=== PATIENT | female | born 1985 | race African-American/Black ===

== ENCOUNTER 2017-05-15 17:28 | Inpatient (IN) | payer MEDICAID ==
[~2017-05-15] VITALS: Ht 175.3 cm; Wt 116.1 kg
[2017-05-15 18:08] LABS: APPEARANCE,URINE CLEAR; KETONES,URINE 1+ (NEGATIVE); LEUKOCYTE ESTERASE ,URINE 1+ (NEGATIVE); NITRITE,URINE NEGATIVE (NEGATIVE); PH,URINE 6 (4.5-8.0); PROTEIN,URINE NEGATIVE (NEGATIVE); UROBILINOGEN,URINE NORMAL MG/DL (0.0-1.0)
[2017-05-15 18:27] LABS: BASOPHILS % (AUTO) 1.2 % (0.0-2.0); EOSINOPHILS % (AUTO) 1.1 % (0.0-3.0); LYMPHOCYTES % (AUTO) 31.8 % (20.0-45.0); MEAN CORPUSCULAR HEMOGLOBIN 33.9 PG (27.0-31.0); MEAN CORPUSCULAR HGB CONC 35.4 G/DL (32.0-36.0); MEAN CORPUSCULAR VOLUME 96 FL (80-99); MEAN PLATELET VOLUME 6.1 FL (6.5-10.1); MONOCYTES % (AUTO) 9.6 % (1.0-10.0); NEUTROPHILS % (AUTO) 56.2 % (45.0-75.0); PLATELET COUNT 268 K/UL (150-450); RED BLOOD COUNT 3.82 M/UL (4.20-5.40); RED CELL DISTRIBUTION WIDTH 12.8 % (11.6-14.8); WHITE BLOOD COUNT 8.6 K/UL (4.8-10.8)
[2017-05-15 18:34] LABS: BACTERIA,URINE FEW /HPF; SQUAMOUS EPITHELIAL CELL,UR FEW /LPF (NONE/OCC); WBC,URINE 0-2 /HPF (0 - 2)
[2017-05-15 18:35] LABS: ALANINE AMINOTRANSFERASE 14 U/L (3-33); ALBUMIN/GLOBULIN RATIO 1.3 (1.0-2.7); ANION GAP 13 (5-15); ASPARTATE AMINO TRANSFERASE 21 U/L (5-40); CALCIUM 9.7 mg/dL (8.6-10.2); CARBON DIOXIDE 23 mEQ/L (20-30); CHLORIDE 100 mEQ/L (98-107); CREATININE 0.9 mg/dL (0.5-0.9); GLOMERULAR FILTRATION RATE > 60 mL/min (>60); HEMOLYSIS 90; LIPASE 30 U/L (< 60); POTASSIUM 3.9 mEQ/L (3.4-4.9); SODIUM 136 mEQ/L (135-145); TOTAL PROTEIN 8.3 g/dL (6.6-8.7)
[2017-05-15 19:21] VITALS: BP 130/78
[2017-05-15 20:22] VITALS: BP 140/90
[2017-05-15] MEDS ORDERED: TRAMADOL HCL50 MG ORAL (21:21)
[2017-05-15] MEDS ORDERED: IBUPROFEN600 MG ORAL (21:21)
[2017-05-15 21:25] LABS: BASOPHILS % (AUTO) 1.3 % (0.0-2.0); EOSINOPHILS % (AUTO) 1.6 % (0.0-3.0); LYMPHOCYTES % (AUTO) 35.4 % (20.0-45.0); MEAN CORPUSCULAR HEMOGLOBIN 33.5 PG (27.0-31.0); MEAN CORPUSCULAR HGB CONC 34.7 G/DL (32.0-36.0); MEAN CORPUSCULAR VOLUME 97 FL (80-99); MEAN PLATELET VOLUME 6.5 FL (6.5-10.1); MONOCYTES % (AUTO) 9.5 % (1.0-10.0); NEUTROPHILS % (AUTO) 52.2 % (45.0-75.0); PLATELET COUNT 255 K/UL (150-450); RED BLOOD COUNT 3.68 M/UL (4.20-5.40); RED CELL DISTRIBUTION WIDTH 12.8 % (11.6-14.8); WHITE BLOOD COUNT 7.4 K/UL (4.8-10.8)
[2017-05-15] MEDS ORDERED: Norco 5mg/325mg tab ORAL ONE (21:30)
--- NOTE | 2017-05-15 21:57 | Emergency Room Report ---
History of Present Illness General Chief Complaint: Complications Source: Patient Present Illness HPI The patient is a 32-year-old female at 5 weeks gestation by dates presenting for midabdominal pain which began 3 days prior. Pain is described as a 5/10 cramping sensation to the lower abdomen. She has not seen her OB or had US. She denies any vaginal bleeding. She denies other symptoms including N , V, F, chills, back pain, dysuria, hematuria Allergies: Coded Allergies: ADHESIVE TAPE (Verified Allergy, Mild, Itching, 05/16/17) BANANA (Verified Allergy, Mild, Itching, 05/16/17) Patient History Past Medical History: see triage record Pertinent Family History: none Last Menstrual Period: 5 weeks Now: Yes Reviewed Nursing Documentation: PMH: Agreed, PSxH: Agreed Nursing Documentation-PMH Past Medical History: No Stated History Review of Systems All Other Systems: negative except mentioned in HPI Physical Exam Vital Signs Date Time Temp Pulse Resp B/P Pulse Ox O2 Delivery O2 Flow Rate FiO2 05/15/17 17:36 97.9 82 18 133/88 100 Room Air Sp02 EP Interpretation: reviewed, normal General Appearance: no apparent distress, alert, GCS 15, non-toxic Head: normocephalic, atraumatic Eyes: bilateral eye PERRL, bilateral eye normal inspection ENT: hearing grossly normal, normal pharynx, no angioedema, normal voice Neck: full range of motion, supple/symm/no masses Respiratory: chest non-tender, lungs clear, normal breath sounds, speaking full sentences Cardiovascular #1: regular rate, rhythm, no edema Gastrointestinal: normal bowel sounds, soft, no mass, no guarding, tenderness - suprapubic Genitourinary: normal inspection, no CVA tenderness Musculoskeletal: back normal, gait/station normal, normal range of motion, non- tender Neurologic: alert, oriented x3, responsive, motor strength/tone normal, sensory intact, speech normal Psychiatric: judgement/insight normal, memory normal, mood/affect normal, no suicidal/homicidal ideation Skin: normal color, no rash, warm/dry, well hydrated Medical Decision Making PA Attestation Dr. Gordon is my supervising physician. Patient management was discussed with my supervising physician Diagnostic Impression: Primary Impression: Uterine mass Additional Impression: Qualified Codes: Z3A.01 - Less than 8 weeks gestation of ER Course The patient is a 32-year-old female presenting for abdominal pain Differential diagnoses considered include but not limited to Early , threatened , ectopic , hemorrhagic cyst, UTI, among others PE: vitals WNL. NAD Abd is soft. TTP over suprapubic region only Labs: Initial CBC is unremarkable. No leukocytosis. H/H WNL. CMP unremarkable. Beta hCG 710. Not consistent with of 5 weeks. Urinalysis shows 1+ occult blood with few red blood cells. No signs of infection Serial CBC drawn 3 hours later shows decrease of H/H Abd US: Early gestational sac versus pseudo-sac versus polyp versus adenomyosis. There is moderate free fluid cyst leak versus leaking ectopic. Heterogeneous mass with vascularity and pelvic cul-de-sac possible ectopic Case was discussed with Dr. Lai Lion by Dr. Gordon. She will be admitted in stable condition. Pt is NPO. Laboratory Tests Test 05/15/17 17:33 05/15/17 18:00 05/15/17 21:15 Urine Color Yellow Urine Appearance Clear Urine pH 6 (4.5-8.0) Urine Specific [place] 1.020 (1.005-1.035) Urine Protein Negative (NEGATIVE) Urine Glucose (UA) Negative (NEGATIVE) Urine Ketones 1+ (NEGATIVE) H Urine Occult Blood 1+ (NEGATIVE) H Urine Nitrite Negative (NEGATIVE) Urine Bilirubin Negative (NEGATIVE) Urine Urobilinogen Normal MG/DL (0.0-1.0) Urine Leukocyte Esterase 1+ (NEGATIVE) H Urine RBC 2-4 /HPF (0 - 2) H Urine WBC 0-2 /HPF (0 - 2) Urine Squamous Epithelial Cells Few /LPF (NONE/OCC) Urine Bacteria Few /HPF (NONE) Urine HCG, Qualitative Positive White Blood Count 8.6 K/UL (4.8-10.8) 7.4 K/UL (4.8-10.8) Red Blood Count 3.82 M/UL (4.20-5.40) L 3.68 M/UL (4.20-5.40) L Hemoglobin 13.0 G/DL (12.0-16.0) 12.3 G/DL (12.0-16.0) Hematocrit 36.7 % (37.0-47.0) L 35.5 % (37.0-47.0) L Mean Corpuscular Volume 96 FL (80-99) 97 FL (80-99) Mean Corpuscular Hemoglobin 33.9 PG (27.0-31.0) H 33.5 PG (27.0-31.0) H Mean Corpuscular Hemoglobin Concent 35.4 G/DL (32.0-36.0) 34.7 G/DL (32.0-36.0) Red Cell Distribution Width 12.8 % (11.6-14.8) 12.8 % (11.6-14.8) Platelet Count 268 K/UL (150-450) 255 K/UL (150-450) Mean Platelet Volume 6.1 FL (6.5-10.1) L 6.5 FL (6.5-10.1) Neutrophils (%) (Auto) 56.2 % (45.0-75.0) 52.2 % (45.0-75.0) Lymphocytes (%) (Auto) 31.8 % (20.0-45.0) 35.4 % (20.0-45.0) Monocytes (%) (Auto) 9.6 % (1.0-10.0) 9.5 % (1.0-10.0) Eosinophils (%) (Auto) 1.1 % (0.0-3.0) 1.6 % (0.0-3.0) Basophils (%) (Auto) 1.2 % (0.0-2.0) 1.3 % (0.0-2.0) Sodium Level 136 mEQ/L (135-145) Potassium Level 3.9 mEQ/L (3.4-4.9) Chloride Level 100 mEQ/L (98-107) Carbon Dioxide Level 23 mEQ/L (20-30) Anion Gap 13 (5-15) Blood Urea Nitrogen 12 mg/dL (7-23) Creatinine 0.9 mg/dL (0.5-0.9) Estimate Glomerular Filtration Rate > 60 mL/min (>60) Glucose Level 69 mg/dL (74-106) L Calcium Level 9.7 mg/dL (8.6-10.2) Total Bilirubin 0.2 mg/dL (0.0-1.2) Aspartate Amino Transferase (AST) 21 U/L (5-40) Alanine Aminotransferase (ALT) 14 U/L (3-33) Alkaline Phosphatase 59 U/L (35-104) Total Protein 8.3 g/dL (6.6-8.7) Albumin 4.7 g/dL (3.5-5.2) Globulin 3.6 g/dL Albumin/Globulin Ratio 1.3 (1.0-2.7) Lipase 30 U/L (< 60) Human Chorionic Gonadotropin, Quant 712 mIU/mL Lab Results Impression Initial CBC is unremarkable. No leukocytosis. H/H WNL. CMP unremarkable. Beta hCG 710. Not consistent with of 5 weeks. Urinalysis shows 1+ occult blood with few red blood cells. No signs of infection Serial CBC drawn 3 hours later shows decrease of H/H EKG Diagnostic Results EP Interpretation: NSR. No acute changes Rate: normal - 69 Rhythm: NSR ST Segments: no acute changes ASA given to the pt in ED: No PA Scribe Text EKG was reviewed and read with my supervising physician. No acute ST segment changes are seen. Normal rate and rhythm. No acute changes. CT/MRI/US Diagnostic Results CT/MRI/US Diagnostic Results : Imaging Test Ordered: OB US Impression Early gestational sac versus pseudo-sac versus polyp versus adenomyosis. There is moderate free fluid cyst leak versus leaking ectopic. Heterogeneous mass with vascularity and pelvic cul-de-sac possible ectopic Last Vital Signs Date Time Temp Pulse Resp B/P Pulse Ox O2 Delivery O2 Flow Rate FiO2 05/15/17 19:21 99.0 78 15 130/78 100 Room Air Status: improved Disposition: ADMITTED INPATIENT Condition: Stable OLY JEREZ May 15, 2017 21:57
[2017-05-15 22:00] VITALS: BP 120/80
[2017-05-15] MEDS ORDERED: Metoclopramide 10mg/2ml Inj IVP PRN (22:30)
[2017-05-15] MEDS ORDERED: LORazepam Inj 2mg/ml 1ml IV PRN (22:30)
[2017-05-15] MEDS ORDERED: Mylanta II UD 30ml ORAL PRN (22:30)
[2017-05-15] MEDS ORDERED: Nitroglycerin Subl 0.4mg tab (Bottle Of 25) SL PRN (22:30)
[2017-05-15] MEDS ORDERED: Miralax 17gm pkt ORAL PRN (22:30)
[2017-05-15] MEDS ORDERED: Morphine Sulfate 2mg/ml Inj IVP PRN (22:30)
[2017-05-15 22:33] LABS: INR 0.9 (0.9-1.1); PROTHROMBIN TIME 9.4 SEC (9.30-11.50)
[2017-05-16] VITALS: BP 120/74
[2017-05-16] MEDS: D5 1/2NS 1,000 ML IV SCH ×2 (00:34→13:46)
[2017-05-16 04:00] VITALS: BP 111/52
[2017-05-16 07:56] LABS: BASOPHILS % (AUTO) 0.9 % (0.0-2.0); LYMPHOCYTES % (AUTO) 34.2 % (20.0-45.0); MEAN CORPUSCULAR HEMOGLOBIN 32.9 PG (27.0-31.0); MEAN CORPUSCULAR HGB CONC 33.5 G/DL (32.0-36.0); MEAN CORPUSCULAR VOLUME 98 FL (80-99); MEAN PLATELET VOLUME 6.3 FL (6.5-10.1); MONOCYTES % (AUTO) 12.2 % (1.0-10.0); NEUTROPHILS % (AUTO) 50.7 % (45.0-75.0); PLATELET COUNT 263 K/UL (150-450); RED BLOOD COUNT 3.69 M/UL (4.20-5.40); RED CELL DISTRIBUTION WIDTH 12.4 % (11.6-14.8); WHITE BLOOD COUNT 5.9 K/UL (4.8-10.8)
[2017-05-16 08:00] VITALS: BP 123/62
[2017-05-16 08:54] LABS: ALANINE AMINOTRANSFERASE 12 U/L (3-33); ALBUMIN/GLOBULIN RATIO 1.2 (1.0-2.7); AMYLASE 60 U/L (10-110); ANION GAP 13 (5-15); ASPARTATE AMINO TRANSFERASE 16 U/L (5-40); CALCIUM 8.6 mg/dL (8.6-10.2); CARBON DIOXIDE 21 mEQ/L (20-30); CHLORIDE 104 mEQ/L (98-107); CREATININE 0.7 mg/dL (0.5-0.9); GLOMERULAR FILTRATION RATE > 60 mL/min (>60); HEMOLYSIS 7; LIPASE 23 U/L (< 60); POTASSIUM 3.2 mEQ/L (3.4-4.9); SODIUM 138 mEQ/L (135-145); TOTAL PROTEIN 6.8 g/dL (6.6-8.7)
[2017-05-16] MEDS ORDERED: Heparin 5000 units/ml inj SUBQ SCH (09:00)
[2017-05-16] MEDS ORDERED: D5 1/2NS 1000ml IV ONE (09:15)
--- NOTE | 2017-05-16 09:32 | Diagnostic Imaging Report ---
Indication: 32-year-old female with beta hCG of 712 presenting with pelvic pain. Technique: Transabdominal and endovaginal pelvic ultrasound. Comparison: None Findings: Uterus measures 8.8 x 5.9 x 4.6 cm. The endometrial echo complex measures 11 mm. There is a 3 mm cystic structure within the endometrial echo complex. No yolk sac or pole identified at this time. There is a complex posterior pelvic mass measuring 9.5 cm abutting the posterior aspect of the uterus. Internal vascularity is noted within this mass. The right ovary measures approximately 3.2 x 4.0 cm with 2 cysts measuring up to 2.3 cm. There is moderate free fluid in the pelvis. Left ovary is not identified. Impression: Technically limited examination. Endometrial echo complex measures 11 mm with a 3 mm cystic structure but no visualization of a yolk sac, pole or heart tones. Although this could represent an early gestational sac too small to date sonographically, possibility of a pseudo-gestational sac cannot be completely excluded. Without definitive identification of an intrauterine , possibility of ectopic cannot be excluded. Correlation with serial beta hCG recommended. Gynecologic evaluation recommended. Large heterogeneous solid-appearing mass within the posterior pelvic cul-de-sac abutting the uterus measuring 9.5 x 5.3 cm. Differential considerations would include an exophytic fibroid versus solid adnexal mass. Again the possibility of ectopic cannot be completely excluded. Laboratory/clinical correlation recommended. Gynecologic evaluation recommended. Moderate free fluid in the pelvis, nonspecific. Right ovarian cysts. Left ovary nonvisualized. Findings are concordant with the preliminary radiology report.
--- NOTE | 2017-05-16 10:59 | History and Physical ---
History of Present Illness General Date patient seen: May 16, 2017 Time patient seen: 10:00 Reason for Hospitalization: Complications Present Illness HPI 32-year-old female w/out significant past medical history at 5 weeks gestation by dates presented for midabdominal pain x 3 days. Pain was described as cramping, intermittent, located in lower abdomen, 5/10 on a scale 1 to 10. She had not seen O/HOTEL SUPERINTENDENT and did not have US. She denied any vaginal bleeding. She denied n/v/, no fevers, no chills, no back pain, no dysuria, no hematuria , no diarrhea Workup in ED revealed no leukocytosis, no fever, stable VS lytes stable, but this am K-3.2 [id number]-[id number] UA no evidence of UTI pelvic/TV US revealed : 11 mm with a 3 mm cystic structure but no visualization of a yolk sac, pole or heart tones. Although this could represent an early gestational sac too small to date sonographically, possibility of a pseudo-gestational sac cannot be completely excluded. Without definitive identification of an intrauterine , possibility of ectopic cannot be excluded. Large heterogeneous solid-appearing mass within the posterior pelvic cul-de-sac abutting the uterus measuring 9.5 x 5.3 cm. Differential considerations would include an exophytic fibroid versus solid adnexal mass. Again the possibility of ectopic cannot be completely excluded. Moderate free fluid in the pelvis, nonspecific. CONSULTING SALES MANAGER dr Lion was contacted from ED patient reported that she WAs in relationship with another female, but trying to get and was inseminated at home at the end of March patient was admitted for further management Allergies: Coded Allergies: ADHESIVE TAPE (Verified Allergy, Mild, Itching, 05/16/17) BANANA (Verified Allergy, Mild, Itching, 05/16/17) Medication History No Active Prescriptions or Reported Meds Patient History Healthcare decision maker Resuscitation status Full Code Advanced Directive on File Review of Systems Constitutional: Reports: no symptoms Eye: Reports: no symptoms ENT: Reports: no symptoms Respiratory: Reports: no symptoms Cardiovascular: Reports: no symptoms Gastrointestinal: Reports: no symptoms Genitourinary: Reports: see HPI Musculoskeletal: Reports: no symptoms Psychiatric: Reports: no symptoms Neurological: Reports: no symptoms Endocrine: Reports: no symptoms Hematologic/Lymphatic: Reports: no symptoms Physical Exam General Appearance: WD/WN, no apparent distress, alert Lines, tubes and drains: peripheral HEENT: normocephalic, atraumatic, anicteric, PERRL Neck: non-tender, supple Respiratory/Chest: lungs clear, no respiratory distress, no accessory muscle use Cardiovascular/Chest: normal rate, regularly irregular, no JVD Abdomen: normal bowel sounds, non tender, soft Extremities: normal range of motion, non-tender, normal inspection, no calf tenderness, normal capillary refill Skin Exam: normal pigmentation, warm/dry Neurologic: no motor/sensory deficits, alert, oriented x 3, responsive, normal mood/affect Musculoskeletal: normal muscle bulk Last 24 Hour Vital Signs Date Time Temp Pulse Resp B/P Pulse Ox O2 Delivery O2 Flow Rate FiO2 05/16/17 08:00 97.7 72 19 123/62 100 Room Air 05/16/17 04:00 97.5 86 20 111/52 100 Room Air 05/16/17 00:25 93 18 128/78 98 Room Air 05/16/17 00:00 97.5 84 18 120/74 99 Room Air 05/15/17 22:00 97.8 82 16 120/80 98 Room Air 05/15/17 20:22 98.0 92 16 140/90 98 Room Air 05/15/17 19:21 99.0 78 15 130/78 100 Room Air 05/15/17 17:36 97.9 82 18 133/88 100 Room Air Intake and Output 05/15/17 05/16/17 19:00 07:00 Intake Total 450 ml Balance 450 ml Intake IV Total 450 ml # Voids 1 2 Laboratory Tests Test 05/15/17 17:33 05/15/17 18:00 05/15/17 21:15 05/16/17 06:50 Urine Color Yellow Urine Appearance Clear Urine pH 6 (4.5-8.0) Urine Specific [place] 1.020 (1.005-1.035) Urine Protein Negative (NEGATIVE) Urine Glucose (UA) Negative (NEGATIVE) Urine Ketones 1+ (NEGATIVE) H Urine Occult Blood 1+ (NEGATIVE) H Urine Nitrite Negative (NEGATIVE) Urine Bilirubin Negative (NEGATIVE) Urine Urobilinogen Normal MG/DL (0.0-1.0) Urine Leukocyte Esterase 1+ (NEGATIVE) H Urine RBC 2-4 /HPF (0 - 2) H Urine WBC 0-2 /HPF (0 - 2) Urine Squamous Epithelial Cells Few /LPF (NONE/OCC) Urine Bacteria Few /HPF (NONE) Urine HCG, Qualitative Positive White Blood Count 8.6 K/UL (4.8-10.8) 7.4 K/UL (4.8-10.8) 5.9 K/UL (4.8-10.8) Red Blood Count 3.82 M/UL (4.20-5.40) L 3.68 M/UL (4.20-5.40) L 3.69 M/UL (4.20-5.40) L Hemoglobin 13.0 G/DL (12.0-16.0) 12.3 G/DL (12.0-16.0) 12.2 G/DL (12.0-16.0) Hematocrit 36.7 % (37.0-47.0) L 35.5 % (37.0-47.0) L 36.2 % (37.0-47.0) L Mean Corpuscular Volume 96 FL (80-99) 97 FL (80-99) 98 FL (80-99) Mean Corpuscular Hemoglobin 33.9 PG (27.0-31.0) H 33.5 PG (27.0-31.0) H 32.9 PG (27.0-31.0) H Mean Corpuscular Hemoglobin Concent 35.4 G/DL (32.0-36.0) 34.7 G/DL (32.0-36.0) 33.5 G/DL (32.0-36.0) Red Cell Distribution Width 12.8 % (11.6-14.8) 12.8 % (11.6-14.8) 12.4 % (11.6-14.8) Platelet Count 268 K/UL (150-450) 255 K/UL (150-450) 263 K/UL (150-450) Mean Platelet Volume 6.1 FL (6.5-10.1) L 6.5 FL (6.5-10.1) 6.3 FL (6.5-10.1) L Neutrophils (%) (Auto) 56.2 % (45.0-75.0) 52.2 % (45.0-75.0) 50.7 % (45.0-75.0) Lymphocytes (%) (Auto) 31.8 % (20.0-45.0) 35.4 % (20.0-45.0) 34.2 % (20.0-45.0) Monocytes (%) (Auto) 9.6 % (1.0-10.0) 9.5 % (1.0-10.0) 12.2 % (1.0-10.0) H Eosinophils (%) (Auto) 1.1 % (0.0-3.0) 1.6 % (0.0-3.0) 2.0 % (0.0-3.0) Basophils (%) (Auto) 1.2 % (0.0-2.0) 1.3 % (0.0-2.0) 0.9 % (0.0-2.0) Prothrombin Time 9.4 SEC (9.30-11.50) Prothromb Time International Ratio 0.9 (0.9-1.1) Activated Partial Thromboplast Time 30 SEC (23-33) 29 SEC (23-33) Sodium Level 136 mEQ/L (135-145) 138 mEQ/L (135-145) Potassium Level 3.9 mEQ/L (3.4-4.9) 3.2 mEQ/L (3.4-4.9) L Chloride Level 100 mEQ/L (98-107) 104 mEQ/L (98-107) Carbon Dioxide Level 23 mEQ/L (20-30) 21 mEQ/L (20-30) Anion Gap 13 (5-15) 13 (5-15) Blood Urea Nitrogen 12 mg/dL (7-23) 11 mg/dL (7-23) Creatinine 0.9 mg/dL (0.5-0.9) 0.7 mg/dL (0.5-0.9) Estimat Glomerular Filtration Rate > 60 mL/min (>60) > 60 mL/min (>60) Glucose Level 69 mg/dL (74-106) L 91 mg/dL (74-106) Calcium Level 9.7 mg/dL (8.6-10.2) 8.6 mg/dL (8.6-10.2) Total Bilirubin 0.2 mg/dL (0.0-1.2) 0.4 mg/dL (0.0-1.2) Aspartate Amino Transf (AST/SGOT) 21 U/L (5-40) 16 U/L (5-40) Alanine Aminotransferase (ALT/SGPT) 14 U/L (3-33) 12 U/L (3-33) Alkaline Phosphatase 59 U/L (35-104) 52 U/L (35-104) Total Protein 8.3 g/dL (6.6-8.7) 6.8 g/dL (6.6-8.7) Albumin 4.7 g/dL (3.5-5.2) 3.8 g/dL (3.5-5.2) Globulin 3.6 g/dL 3.0 g/dL Albumin/Globulin Ratio 1.3 (1.0-2.7) 1.2 (1.0-2.7) Lipase 30 U/L (< 60) 23 U/L (< 60) Human Chorionic Gonadotropin, Quant 712 mIU/mL Amylase Level 60 U/L (10-110) Height (Feet): 5 Height (Inches): 9.00 Weight (Pounds): 256 Medications Current Medications Medications (Trade) Dose Ordered Sig/Genny Route PRN Reason Start Time Stop Time Status Last Admin Dose Admin Acetaminophen (Tylenol) 650 mg Q4H PRN ORAL fever 05/15/17 22:30 06/14/17 22:29 Al Hydroxide/Mg Hydroxide (Mylanta II) 30 ml Q6H PRN ORAL dyspepsia 05/15/17 22:30 06/14/17 22:29 Dextrose (Dextrose 50%) STAT PRN IV Hypoglycemia 05/15/17 22:30 06/14/17 22:29 Dextrose/Sodium Chloride (D5 0.45% NS) 1,000 ml @ 75 mls/hr [id number] IV 05/15/17 23:00 06/14/17 22:59 05/16/17 00:34 Diphenhydramine HCl (Benadryl) 25 mg Q6H PRN ORAL Itching/Pruritis 05/15/17 22:30 06/14/17 22:29 Heparin Sodium (Porcine) (Heparin 5000 units/ml) 5,000 units EVERY 12 HOURS SUBQ 05/16/17 09:00 06/15/17 08:59 Metoclopramide HCl (Reglan) 10 mg Q6H PRN IVP servere nauasea 05/15/17 22:30 06/14/17 22:29 Morphine Sulfate (Morphine Sulfate) 2 mg Q4H PRN IVP severe Pain (Pain Scale 7-10) 05/15/17 22:30 05/22/17 22:29 Nitroglycerin (Ntg) 0.4 mg Q5M X 3 DOSES PRN SL Prn Chest Pain 05/15/17 22:30 06/14/17 22:29 Ondansetron HCl (Zofran) 4 mg Q6H PRN IVP Nausea & Vomiting 05/15/17 22:30 06/14/17 22:29 Polyethylene Glycol (Miralax) 17 gm HSPRN PRN ORAL Constipation 05/15/17 22:30 06/14/17 22:29 Promethazine HCl (Phenergan) 25 mg Q8H PRN IV refractory nausea 05/15/17 22:30 06/14/17 22:29 Assessment/Plan Assessment/Plan ASSESSMENT ABDOMINAL PAIN EARLY POSSIBLE UTERINE MASS POSSIBLE FIBROID POSSIBLE ECTOPIC PLAN OF CARE MS floor IVF NPO CONSULTING SALES MANAGER consult pending pain management HcG not consistent with gestational age possible incorrect term replace K a/emetic prn Addendum: [address] Lion case Afebrile, no leucocytosis HcG numerical data corresponds with US findings HH remain stable, no evidence of bleeding patient can be dc per OB/GUN and fup on Thursday with OB/for another HcG check and further management advised on good fluid intake patient agreed with the plan , will fup as outpatient with CONSULTING SALES MANAGER case discussed and evaluated by supervising physician Artur Jiang)Ligia NP May 16, 2017 10:59
[2017-05-16 12:00] VITALS: BP 145/87
[2017-05-16 16:00] VITALS: BP 140/91
[2017-05-16] MEDS ORDERED: KCl 10% 40mEq/30ml liquid ORAL ONE (16:00)
--- NOTE | 2017-05-18 08:16 | Diagnostic Imaging Report ---
Indication: Abdominal pain Technique: Ultrasound of the abdomen. Comparison: None Findings: The pancreas is incompletely visualized. Visualized portions are unremarkable. Liver measures 17.5 cm but demonstrates normal echogenicity. No focal liver lesions are identified. Visualized portions of the main portal vein and the hepatic veins are grossly unremarkable although incompletely evaluated. The gallbladder is unremarkable without evidence of stones. Gallbladder wall thickness is within normal limits. Sonographic Goins's is negative. Common bile duct measures 4 mm. Bilateral kidneys demonstrate normal echogenicity. No focal renal lesions are seen. There is no hydronephrosis. No echogenic renal stones are identified. The spleen is normal in size and echogenicity. The visualized aorta is normal in caliber. Visualized portions of the inferior vena cava are unremarkable. Impression: No acute abnormality or evidence of gallstones.
--- NOTE | 2017-05-18 08:18 | Cardiology Report ---
APPROVED REPORT EKG Measurement Heart [id number] Normal sinus rhythm Normal ECG
--- NOTE | 2017-05-18 15:23 | Discharge Summary ---
Discharge Summary Hospital Course Date of Admission May 15, 2017 at 21:54 Date of Discharge May 16, 2017 at 18:37 Admitting Diagnosis possible acute hemmorhage r/o ectopic pr HPI Virginie Calabrese is a 32 year old female who was admitted on May 15, 2017 at 21: 54 for Possible Acute Hemmorhage R/O Ectopic Hospital Course DC SUMMARY #[id number] Discharge Discharge Disposition Patient was discharged to Home (01) Discharge Diagnoses: Artur ([facility]),Ligia ROJAS May 18, 2017 15:23
--- NOTE | 2017-05-19 19:00 | Discharge Summary 2 SIG ---
DATE OF ADMISSION: 05/15/2017 DATE OF DISCHARGE: 05/16/2017 REASON FOR ADMISSION: This is a 32-year-old female without significant past medical history, 1, para 0, and at 5 weeks gestation, presented for midabdominal pain for three days. The pain was described by the patient as cramping, intermittent, located in lower abdomen. She quantifies the pain as 5/10 on a scale of 1 to 10. The patient had not seen any OB or UAT TESTER specialist and neither had ultrasound. She denied any vaginal bleeding. She denied fever or chills. She denied nausea or vomiting. She denied back pain. No dysuria. No hematuria. No diarrhea. Workup in the emergency room revealed no leukocytosis. No fever. Stable vital signs. Electrolytes were stable except potassium, which was 3.2. HCG was 712. Urinalysis revealed no evidence of UTI. Pelvic ultrasound was done, which revealed cystic structure, but no visualization of yolk sac, pole, or heart tone, although this could represent early gestational sac too small to date sonographically, possibility of pseudogestational sac cannot be completely excluded, large heterogeneous solid-appearing mass within the posterior cul-de-sac abutting the uterus measuring 9.5 x 5.3 cm. Differential included fibroid versus solid adnexal mass, moderate free fluid, nonspecific. COVERAGE SPECIALIST, Dr. Lion was contacted for emergency department for further evaluation. The patient reported being in a relationship with another female, but trying to get and was inseminated at home by a friend at the end of March. The patient was admitted for further management. No leukocytosis. No fever. ADMITTING DIAGNOSES: 1. Abdominal pain. 2. Uterine mass, possible fibroid. 3. Possible ectopic , early . HOSPITAL STAY: The patient admitted to medical/surgical floor. The patient was started on IV fluids. The patient kept NPO. COVERAGE SPECIALIST consult was requested. Pain management provided. Potassium was replaced. Antiemetic provided as needed. HCG was not consistent with gestational age as reported by the patient, possibly incorrect term. At 1415 hours, I discussed with Dr. Lion over the phone to care of the patient. Dr. Lion has seen ultrasound. According to Dr. Lion, HCG numerical data corresponds directly with the ultrasound finding, likely early , however the patient needs to have serial HCG level. There is no surgical intervention at this time. Hemoglobin and hematocrit remained stable. No evidence of bleeding. Per COVERAGE SPECIALIST, the patient can be discharged and follow up on Thursday with her OB for another HCG check and further management. The patient was advised on good fluid intake. The patient agreed with this plan and will follow up as an outpatient on Thursday with OB. DISCHARGE DIAGNOSES: 1. Abdominal pain. 2. Uterine mass, possible fibroid, possible ectopic , early . DISCHARGE MEDICATIONS: None. DISCHARGE INSTRUCTIONS: The patient to follow up on Thursday with primary OB doctor for further management. Fabien Wood M.D. I have been assigned to dictate discharge summary on this account and I was not involved in the patient's management. Ligia Villarrealhuntington hospitalKervin N.PKenroy DR: Arsalan JOB#: [id number] CC:
== END 2017-05-16 18:37 | disposition home or self-care (01) | DRG 566 ==
LOC: EMR 21:11 → EDBEDREQ 21:43 → 4E 21:54 → EDBEDREQ 22:08
DX: O34.11 Maternal care for benign tumor of corpus uteri, first trimester (principal); O00.90 Unspecified ectopic pregnancy without intrauterine pregnancy; R10.9 Unspecified abdominal pain; Z3A.01 Less than 8 weeks gestation of pregnancy
CPT/HCPCS: 36415; 76700; 76801; 76830; 80053; 81003; 81025; 82150; 83690; 84702; 85025; 85610; 85730; 86850; 86900; 86901; 93005

== ENCOUNTER 2017-06-13 22:25 | Emergency (ER) | payer MEDICAID, OTHER ==
[~2017-06-13] VITALS: Ht 175.3 cm; Wt 119.7 kg
[~2017-06-13 22:25] MED LIST: IBUPROFEN600 MG ORAL; TRAMADOL HCL50 MG ORAL
[2017-06-13 22:40] VITALS: BP 136/84
[2017-06-13 23:32] LABS: APPEARANCE,URINE CLEAR; KETONES,URINE NEGATIVE (NEGATIVE); LEUKOCYTE ESTERASE ,URINE NEGATIVE (NEGATIVE); NITRITE,URINE NEGATIVE (NEGATIVE); PH,URINE 5 (4.5-8.0); PROTEIN,URINE NEGATIVE (NEGATIVE); UROBILINOGEN,URINE NORMAL MG/DL (0.0-1.0)
[2017-06-13 23:43] LABS: WBC,URINE 0-2 /HPF (0 - 2)
[2017-06-13 23:44] LABS: BACTERIA,URINE OCCASIONAL /HPF; SQUAMOUS EPITHELIAL CELL,UR FEW /LPF (NONE/OCC)
[2017-06-14 00:03] VITALS: BP 128/78
[2017-06-14 00:23] VITALS: BP 122/78
--- NOTE | 2017-06-14 00:30 | Emergency Room Report ---
History of Present Illness General Chief Complaint: Complications Source: Patient Present Illness HPI 32YOF walk-in States 9 weeks Has small amount of blood only when wiping after urinating No ventura hemorrage No abd pain No dysuria Saw OB 5 days ago - had normal sono. Is on Abx for "vaginitis." On vitamins as well Denies fever/chills First Also states has fibroids Allergies: Coded Allergies: ADHESIVE TAPE (Verified Allergy, Mild, Itching, 05/16/17) BANANA (Verified Allergy, Mild, Itching, 05/16/17) Patient History Past Medical History: none Past Surgical History: none Pertinent Family History: none Social History: Denies: smoking, alcohol use, drug use Last Menstrual Period: April 10, 2017 Now: Yes - 9 weeks Immunizations: UTD Reviewed Nursing Documentation: PMH: Agreed, PSxH: Agreed Nursing Documentation-PMH Past Medical History: No Stated History Hx Cardiac Problems: No Hx Cancer: No Hx Gastrointestinal Problems: No Hx Neurological Problems: No Review of Systems All Other Systems: negative except mentioned in HPI Physical Exam Vital Signs Date Time Temp Pulse Resp B/P (MAP) Pulse Ox O2 Delivery O2 Flow Rate FiO2 06/13/17 22:32 98.1 92 17 147/87 99 Room Air Sp02 EP Interpretation: reviewed, normal General Appearance: normal inspection, well appearing, no apparent distress, alert, obese Head: atraumatic ENT: normal ENT inspection, hearing grossly normal, normal voice Neck: normal inspection, full range of motion, supple, no bony tend Respiratory: normal inspection, lungs clear, normal breath sounds, no respiratory distress, no retraction, no wheezing Cardiovascular #1: regular rate, rhythm, no edema Gastrointestinal: normal inspection, normal bowel sounds, non tender, soft, no guarding, no hernia, other - Not obvious gravid uterus. Non-tender. Abd ultrasound shows +FHR in uterus. 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, motor strength/tone normal, speech normal Psychiatric: normal inspection, judgement/insight normal, mood/affect normal Skin: normal inspection Medical Decision Making Diagnostic Impression: Primary Impression: Vaginal bleeding ER Course Urine preg positive No ventura hemorrhage on exam or abd pain Unlikely threatened Ab Blood on tissue paper likely from vaginitis Reassured patient UA negative for UTI DC home Has OB followup in 2 weeks Last Vital Signs Date Time Temp Pulse Resp B/P (MAP) Pulse Ox O2 Delivery O2 Flow Rate FiO2 06/14/17 00:23 98.8 86 16 122/78 100 Room Air Status: improved Disposition: HOME, SELF-CARE Condition: Improved Scripts No Active Prescriptions or Reported Meds Patient Instructions: Labor Information Additional Instructions: - Follow up with OB at next scheduled appointment - Return to ER for severe bleeding with severe abdominal pain - FINISH antibiotics given by your doctor LISET MARION M.D. Jun 14, 2017 00:30
== END 2017-06-14 00:23 | disposition home or self-care (01) ==
LOC: EMR 23:05
DX: O20.9 Hemorrhage in early pregnancy, unspecified (principal); Z3A.09 9 weeks gestation of pregnancy
CPT/HCPCS: 81003; 81025; 99282

== ENCOUNTER 2017-07-03 22:57 | Emergency (ER) | payer OTHER ==
[~2017-07-03] VITALS: Ht 177.8 cm; Wt 122.5 kg
[2017-07-03 23:57] VITALS: BP 120/66
[2017-07-04 00:13] VITALS: BP 120/66
--- NOTE | 2017-07-04 03:38 | Emergency Room Report ---
History of Present Illness General Chief Complaint: Wound Recheck/Suture Removal Source: Patient Present Illness HPI 32-year-old female, 12 weeks , with infected pilonidal cyst status post incision and drainage 3 days ago at [place], here for wound check. Patient states that she has been given antibiotics and she has been compliant. Patient states improvement of pain. No fever no chills Allergies: Coded Allergies: ADHESIVE TAPE (Verified Allergy, Mild, Itching, 05/16/17) BANANA (Verified Allergy, Mild, Itching, 05/16/17) Patient History Past Medical History: see triage record Past Surgical History: none Pertinent Family History: none Last Menstrual Period: March Now: Yes - 12 wks Reviewed Nursing Documentation: PMH: Agreed, PSxH: Agreed Nursing Documentation-PMH Past Medical History: No Stated History Hx Cardiac Problems: No Hx Cancer: No Hx Gastrointestinal Problems: No Hx Neurological Problems: No Review of Systems All Other Systems: negative except mentioned in HPI Physical Exam Vital Signs Date Time Temp Pulse Resp B/P (MAP) Pulse Ox O2 Delivery O2 Flow Rate FiO2 07/03/17 23:02 98.2 87 18 119/70 100 Room Air Sp02 EP Interpretation: reviewed, normal General Appearance: normal inspection, well appearing, no apparent distress, alert, GCS 15, non-toxic Head: normocephalic, atraumatic Eyes: bilateral eye normal inspection, bilateral eye PERRL, bilateral eye EOMI ENT: normal ENT inspection, normal pharynx, normal voice, moist mucus membranes Neck: normal inspection, full range of motion, supple Respiratory: normal inspection, lungs clear, normal breath sounds, no respiratory distress, no retraction, no wheezing, speaking full sentences, chest symmetrical Cardiovascular #1: normal inspection, regular rate, rhythm, no edema, normal capillary refill Cardiovascular #2: 2+ radial (R), 2+ radial (L) Gastrointestinal: normal inspection, non tender, soft, non-distended, no guarding Musculoskeletal: normal inspection, back normal, normal range of motion, non- tender Neurologic: normal inspection, alert, oriented x3, responsive, motor strength/ tone normal, sensory intact, normal gait, speech normal Psychiatric: normal inspection, judgement/insight normal, memory normal Skin: warm/dry, well hydrated, normal turgor, other - Pilonidal abscess status post incision and drainage, above gluteal fold, 1.5 cm incision, packed, and no purulent drainage, minimal bleeding, no surrounding erythema nontender Medical Decision Making Diagnostic Impression: Primary Impression: Encounter for wound re-check ER Course 32-year-old female status post abscess incision and drainage 3 days ago here for wound check Plan: Remove packing, continue patient's antibiotic ER course: Packing removed, no purulent drainage Sterile dressing applied Disposition: Patient is to be discharged to home. Patient instructed to continue antibiotics Patient is instructed to follow up with their primary care doctor within 5 days. Strict return precautions discussed with patient such as fever, chills, worsening pain, rapid spread of rash, nausea, vomiting, which may indicate severe illness. Patient verbalizes understanding and agrees with plan. Please note that this Emergency Department Report was dictated using [employer] discharge planner technology software, occasionally this can lead to erroneous entry secondary to interpretation by the dictation equipment Last Vital Signs Date Time Temp Pulse Resp B/P (MAP) Pulse Ox O2 Delivery O2 Flow Rate FiO2 07/04/17 00:13 98.2 62 16 120/66 100 Room Air Disposition: HOME, SELF-CARE Condition: Improved Scripts No Active Prescriptions or Reported Meds Referrals: [employer],[facility]ERRIN (PCP) Patient Instructions: Wound Check Additional Instructions: Please follow up with your primary care doctor within 3 days. PLEASE CONTINUE TO TAKE YOUR ANTIBIOTIC Please come back to the emergency room if you are having severe/worsening pain, high fever or chills, spread of rash or intractable nausea or vomiting Chioma Mackenzie M.D. Jul 04, 2017 03:37
== END 2017-07-04 00:13 | disposition home or self-care (01) ==
LOC: EMR 23:40
DX: Z48.03 Encounter for change or removal of drains (principal); L05.01 Pilonidal cyst with abscess
CPT/HCPCS: 99281

== ENCOUNTER 2017-07-17 21:31 | Emergency (ER) | payer OTHER ==
[~2017-07-17] VITALS: Ht 175.3 cm; Wt 122.5 kg
--- NOTE | 2017-07-17 21:56 | Emergency Room Report ---
History of Present Illness General Chief Complaint: Headache Source: Patient Present Illness HPI The patient's complaining of a headache. Started earlier this morning. She's been having problems with morning sickness and vomiting. She's been able to keep things down and was taking Tylenol but still had significant pain. There' s no pain in her body. Denies any dysuria. There is no dizziness when she is standing. She's had headaches like this in the past but rarely. She's felt feverish but without documented temperature. She denies any sore throat cough shortness of breath chest pain swelling in her legs. The pain is 6/10 frontal, non-radiating, constant and pounding. She still has nausea. She is 14 weeks . Denies vaginal bleeding. Allergies: Coded Allergies: ADHESIVE TAPE (Verified Allergy, Mild, Itching, 05/16/17) BANANA (Verified Allergy, Mild, Itching, 05/16/17) Patient History Past Medical History: see triage record Social History: Denies: smoking, alcohol use, drug use Social History Narrative with significant other Last Menstrual Period: April 10 Now: Yes - 14 weeks : 1 Para: 0 Reviewed Nursing Documentation: PMH: Agreed, PSxH: Agreed Nursing Documentation-PMH Past Medical History: No Stated History Hx Cardiac Problems: No Hx Cancer: No Hx Gastrointestinal Problems: No Hx Neurological Problems: No Review of Systems All Other Systems: negative except mentioned in HPI Physical Exam Vital Signs Date Time Temp Pulse Resp B/P (MAP) Pulse Ox O2 Delivery O2 Flow Rate FiO2 07/17/17 21:34 98.1 74 18 120/74 98 Room Air Sp02 EP Interpretation: reviewed, normal General Appearance: well appearing, no apparent distress, GCS 15 Head: normocephalic Eyes: bilateral eye normal inspection, bilateral eye PERRL, bilateral eye EOMI ENT: moist mucus membranes Neck: supple Respiratory: lungs clear, normal breath sounds Cardiovascular #1: regular rate, rhythm Cardiovascular #2: 2+ radial (R) Gastrointestinal: normal inspection, normal bowel sounds, non tender, no mass, non-distended Genitourinary: no CVA tenderness Musculoskeletal: back normal, gait/station normal, normal range of motion Neurologic: alert, oriented x3, 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 DDx: dehydration, electrolyte abnormality, UTI, viral process, sinusitis amongst others. VS against HTN/pre-eclampsis. No evidence of problems with fetus. Treatment with IV hydration, reglan and benadry. No indication for quant. Will check labs and UA. Labs unremarkable. Improved - resolved pain with treatment. Patient stable for outpatient observation and treatment. Laboratory Tests Test 07/17/17 22:15 White Blood Count 9.3 K/UL (4.8-10.8) Red Blood Count 3.90 M/UL (4.20-5.40) L Hemoglobin 12.3 G/DL (12.0-16.0) Hematocrit 38.7 % (37.0-47.0) Mean Corpuscular Volume 99 FL (80-99) Mean Corpuscular Hemoglobin 31.5 PG (27.0-31.0) H Mean Corpuscular Hemoglobin Concent 31.7 G/DL (32.0-36.0) L Red Cell Distribution Width 12.5 % (11.6-14.8) Platelet Count 330 K/UL (150-450) Mean Platelet Volume 6.7 FL (6.5-10.1) Neutrophils (%) (Auto) 62.4 % (45.0-75.0) Lymphocytes (%) (Auto) 27.9 % (20.0-45.0) Monocytes (%) (Auto) 7.3 % (1.0-10.0) Eosinophils (%) (Auto) 1.2 % (0.0-3.0) Basophils (%) (Auto) 1.3 % (0.0-2.0) Prothrombin Time 9.1 SEC (9.30-11.50) L Prothrombin Time INR 0.9 (0.9-1.1) PTT 27 SEC (23-33) Urine Color Pale yellow Urine Appearance Clear Urine pH 6.5 (4.5-8.0) Urine Specific [place] 1.010 (1.005-1.035) Urine Protein Negative (NEGATIVE) Urine Glucose (UA) Negative (NEGATIVE) Urine Ketones Negative (NEGATIVE) Urine Occult Blood Negative (NEGATIVE) Urine Nitrite Negative (NEGATIVE) Urine Bilirubin Negative (NEGATIVE) Urine Urobilinogen Normal MG/DL (0.0-1.0) Urine Leukocyte Esterase 1+ (NEGATIVE) H Urine RBC 0-2 /HPF (0 - 2) Urine WBC 2-4 /HPF (0 - 2) Urine Squamous Epithelial Cells Moderate /LPF (NONE/OCC) H Urine Bacteria Few /HPF (NONE) Sodium Level 136 MMOL/L (136-145) Potassium Level 3.8 MMOL/L (3.5-5.1) Chloride Level 104 MMOL/L (98-107) Carbon Dioxide Level 23 MMOL/L (21-32) Anion Gap 9 mmol/L (5-15) Blood Urea Nitrogen 13 mg/dL (7-18) Creatinine 0.7 MG/DL (0.55-1.30) Estimate Glomerular Filtration Rate > 60 mL/min (>60) Glucose Level 83 MG/DL (74-106) Calcium Level 9.1 MG/DL (8.5-10.1) Total Bilirubin < 0.1 MG/DL (0.2-1.0) L Aspartate Amino Transferase (AST) 21 U/L (15-37) Alanine Aminotransferase (ALT) 31 U/L (12-78) Alkaline Phosphatase 55 U/L (46-116) Total Protein 7.9 G/DL (6.4-8.2) Albumin 3.4 G/DL (3.4-5.0) Globulin 4.5 g/dL Albumin/Globulin Ratio 0.8 (1.0-2.7) L Lipase 135 U/L (73-393) Last Vital Signs Date Time Temp Pulse Resp B/P (MAP) Pulse Ox O2 Delivery O2 Flow Rate FiO2 07/18/17 00:50 76 16 124/75 99 Room Air 07/17/17 23:15 98.2 Status: improved Disposition: HOME, SELF-CARE Condition: Improved Scripts Acetaminophen With Codeine (T#3) (TYLENOL #3 TAB*) Y Tab 1 TAB ORAL Q6HR Y for For Pain, #6 TAB Prov: Garrison Bravo M.D. 07/18/17 Promethazine Hcl (PROMETHAZINE HCL) 25 Mg Supp.rect 25 MG RC Q8HR Y for nausea/vomiting, #6 SUPP 1 Refill Prov: Garrison Bravo M.D. 07/18/17 Promethazine Hcl* (PHENERGAN*) 25 Mg Tablet 25 MG ORAL Q8HR, #10 TAB 1 Refill Prov: Garrison Bravo M.D. 07/18/17 Garrison Bravo M.D. Jul 17, 2017 21:56
[2017-07-17] MEDS ORDERED: Metoclopramide 10mg/2ml Inj IVP ONE (22:00)
[2017-07-17] MEDS ORDERED: DiphenhydrAMINE 50mg/ml Inj IVP ONE (22:00)
[2017-07-17 22:34] LABS: APPEARANCE,URINE CLEAR; KETONES,URINE NEGATIVE (NEGATIVE); LEUKOCYTE ESTERASE ,URINE 1+ (NEGATIVE); NITRITE,URINE NEGATIVE (NEGATIVE); PH,URINE 6.5 (4.5-8.0); PROTEIN,URINE NEGATIVE (NEGATIVE); UROBILINOGEN,URINE NORMAL MG/DL (0.0-1.0)
[2017-07-17 22:44] LABS: BASOPHILS % (AUTO) 1.3 % (0.0-2.0); EOSINOPHILS % (AUTO) 1.2 % (0.0-3.0); LYMPHOCYTES % (AUTO) 27.9 % (20.0-45.0); MEAN CORPUSCULAR HEMOGLOBIN 31.5 PG (27.0-31.0); MEAN CORPUSCULAR HGB CONC 31.7 G/DL (32.0-36.0); MEAN CORPUSCULAR VOLUME 99 FL (80-99); MEAN PLATELET VOLUME 6.7 FL (6.5-10.1); MONOCYTES % (AUTO) 7.3 % (1.0-10.0); NEUTROPHILS % (AUTO) 62.4 % (45.0-75.0); PLATELET COUNT 330 K/UL (150-450); RED CELL DISTRIBUTION WIDTH 12.5 % (11.6-14.8); WHITE BLOOD COUNT 9.3 K/UL (4.8-10.8)
[2017-07-17 22:47] LABS: BACTERIA,URINE FEW /HPF; RBC,URINE 0-2 /HPF (0 - 2); SQUAMOUS EPITHELIAL CELL,UR MODERATE /LPF (NONE/OCC)
[2017-07-17 22:50] LABS: INR 0.9 (0.9-1.1); PROTHROMBIN TIME 9.1 SEC (9.30-11.50)
[2017-07-17 22:57] LABS: ALANINE AMINOTRANSFERASE 31 U/L (12-78); ALBUMIN/GLOBULIN RATIO 0.8 (1.0-2.7); ANION GAP 9 mmol/L (5-15); ASPARTATE AMINO TRANSFERASE 21 U/L (15-37); CALCIUM 9.1 MG/DL (8.5-10.1); CARBON DIOXIDE 23 MMOL/L (21-32); CHLORIDE 104 MMOL/L (98-107); CREATININE 0.7 MG/DL (0.55-1.30); GLOMERULAR FILTRATION RATE > 60 mL/min (>60); LIPASE 135 U/L (73-393); POTASSIUM 3.8 MMOL/L (3.5-5.1); SODIUM 136 MMOL/L (136-145); TOTAL PROTEIN 7.9 G/DL (6.4-8.2)
[2017-07-17 23:15] VITALS: BP 124/75
[2017-07-18] MEDS ORDERED: ACETAMINOPHEN-1 EAC1 ORAL (00:38)
[2017-07-18] MEDS ORDERED: PROMETHAZINE HC25 MG RC (00:38)
[2017-07-18] MEDS ORDERED: PHENERGAN25 M1 ORAL (00:38)
[2017-07-18 00:50] VITALS: BP 124/75
== END 2017-07-18 00:46 | disposition home or self-care (01) ==
LOC: EMR 22:20
DX: O26.892 Other specified pregnancy related conditions, second trimester (principal); Z3A.14 14 weeks gestation of pregnancy; R51 Headache
CPT/HCPCS: 36415; 80053; 81003; 83690; 85025; 85610; 85730; 96361; 96374; 96375; 99284; J1200; J2765

== ENCOUNTER 2019-07-07 20:11 | Emergency (ER) | payer MEDICAID, OTHER ==
[~2019-07-07] VITALS: Ht 177.8 cm; Wt 127.0 kg
[~2019-07-07 20:11] MED LIST changes: +ACETAMINOPHEN-1 EAC1 ORAL; +PHENERGAN25 M1 ORAL; +PROMETHAZINE HC25 MG RC
[2019-07-07] MEDS ORDERED: NKM (20:32)
[2019-07-07] MEDS ORDERED: Tetanus/Diptheria/Pertussis IM ONE ×2 (20:45→21:22)
[2019-07-07] MEDS ORDERED: Hydrogen Peroxide 473ml Bottle TOPIC ONE ×2 (20:45→21:20)
--- NOTE | 2019-07-07 20:45 | NUR ---
ED Nurse Note: RECIEVED PT FROM HOME WITH C/O LEFT INDEX FINGER LACERATION FROM WORK AT ABOUT 11AM, PT IS LAST [employer] AND STATES CUT FINGER ON KNIFE AT WORK, PT DID NOT DO WORKERS COMP STATING SHE DID NOT WANT TO, MILD BLEEDING CONTROLLED WITH PRESSURE, NO DEFORMITY NOTED, ALL PULSES PRESENT. PT DENIES ANY OTHER DISCOMFORTS OR COMPLAINTS.
--- NOTE | 2019-07-07 21:01 | Emergency Room Report ---
History of Present Illness General Chief Complaint: Laceration Source: Patient Present Illness HPI 34-year-old female with no significant past medical history here complaining of finger laceration that happened at 11:30 AM today on her left third digit. Patient is up-to-date with her tetanus shot. Rating the pain 7 out of 10 without radiation denying tingling and numbness. Has full range of motion. Laceration is closing was on the nail. Denies all other injuries, fever and chills, chest pain, shortness of breath, palpitation, no other associated symptoms. Allergies: Coded Allergies: ADHESIVE TAPE (Verified Allergy, Mild, Itching, 05/16/17) BANANA (Verified Allergy, Mild, Itching, 05/16/17) Patient History Past Medical History: see triage record Past Surgical History: unable to obtain Pertinent Family History: none Last Menstrual Period: 07/04/19 Now: No Immunizations: other - tdap given today Reviewed Nursing Documentation: PMH: Agreed; PSxH: Agreed Nursing Documentation-PMH Past Medical History: No Stated History Hx Cardiac Problems: No Hx Cancer: No Hx Gastrointestinal Problems: No Hx Neurological Problems: No Review of Systems All Other Systems: negative except mentioned in HPI Physical Exam Vital Signs Date Time Temp Pulse Resp B/P (MAP) Pulse Ox O2 Delivery O2 Flow Rate FiO2 07/07/19 20:29 98.1 83 17 143/97 (112) 98 Room Air Sp02 EP Interpretation: reviewed, normal General Appearance: no apparent distress, alert, GCS 15, non-toxic Head: normocephalic, atraumatic Eyes: bilateral eye normal inspection, bilateral eye PERRL ENT: hearing grossly normal, normal pharynx, no angioedema, normal voice Neck: full range of motion, supple/symm/no masses Respiratory: chest non-tender, lungs clear, normal breath sounds, speaking full sentences Cardiovascular #1: regular rate, rhythm, no edema, no murmur Cardiovascular #2: 2+ radial (R), 2+ radial (L) Gastrointestinal: normal bowel sounds, non tender, soft, non-distended, no guarding, no rebound Rectal: deferred Musculoskeletal: back normal, gait/station normal, normal range of motion, non- tender Neurologic: alert, oriented x3, responsive, motor strength/tone normal, sensory intact, speech normal Psychiatric: judgement/insight normal, memory normal, mood/affect normal, no suicidal/homicidal ideation Skin: laceration - On nailbed on left middle finger Lymphatic: normal inspection, no adenopathy Procedures Laceration/Wound Repair Laceration/Wound Repair : Consent: Verbal Wound Location: upper extremity - Left middle finger Wound's Depth, Shape: superficial Wound Length (cm): 1 Wound Explored: contaminated Betadine Prep?: Yes Wound Repaired With: Steri-strips Layer Closure?: Yes Sterile Dressing Applied?: Yes Splint Applied?: No Sling Applied?: No Patient Tolerated: Well Complications: None Medical Decision Making PA Attestation Diagnosis and treatment plans were reviewed and discussed with my supervising physician Dr. Arshad Diagnostic Impression: Primary Impression: Infected laceration ER Course 34-year-old female with no significant past medical history here complaining of finger laceration that happened at 11:30 AM today on her left third digit. Patient is up-to-date with her tetanus shot. Rating the pain 7 out of 10 without radiation denying tingling and numbness. Has full range of motion. Laceration is closing was on the nail. Denies all other injuries, fever and chills, chest pain, shortness of breath, palpitation, no other associated symptoms. Ddx considered but are not limited to : Superficial laceration, deep laceration , tendon involvement with laceration, laceration with foreign body Vital signs: are WNL, pt. is afebrile H&PE are most consistent with: Superficial laceration ORDERS: Augmentin, ibuprofen ED INTERVENTIONS: Wound clean and repair, Tdap DISCHARGE: At this time pt. is stable for d/c to home. Will provide printed patient care instructions, and any necessary prescriptions. Care plan and follow up instructions have been discussed with the patient prior to discharge. Due to possible infection was open for several hours. Patient agrees with the above treatment. If worsening symptoms return to the emergency room Other X-Ray Diagnostic Results Other X-Ray Diagnostic Results : X-Ray ordered: Finger # of Views/Limited Vs Complete: 3 View Indication: Pain EP Interpretation: Yes PA Xray: Interpretation reviewed, by supervising MD, and agrees with findings. Interpretation: no dislocation, no soft tissue swelling, no fractures, other - No foreign body Impression: No acute disease Electronically Signed by: Christopehr Hernandez PA-C Last Vital Signs Date Time Temp Pulse Resp B/P (MAP) Pulse Ox O2 Delivery O2 Flow Rate FiO2 07/07/19 20:29 98.1 83 17 143/97 (112) 98 Room Air Disposition: HOME, SELF-CARE Condition: Stable Scripts Ibuprofen* (MOTRIN*) 600 Mg Tablet 600 MG ORAL Q8H PRN for For Pain, #30 TAB 0 Refills Prov: Christopher Olvera 07/07/19 Amoxicillin/Potassium Clav 875-125* (AUGMENTIN 875-125 TABLET*) 1 Each Tablet 1 TAB ORAL TWICE A DAY for 7 Days, #14 TAB Prov: Christopher Olvera 07/07/19 Patient Instructions: Laceration Care, Adult Additional Instructions: Take medication as directed follow-up with your primary care provider if worsening symptoms return to the emergency room Christopher Olvera Jul 07, 2019 21:01
[2019-07-07] MEDS ORDERED: AUGMENTIN 875-1 EAC1 ORAL (21:02)
[2019-07-07] MEDS ORDERED: IBUPROFEN600 MG ORAL (21:02)
[2019-07-07 21:30] VITALS: BP 143/97
--- NOTE | 2019-07-07 21:30 | NUR ---
ER DISCHARGE NOTE: Patient is cleared to be discharged per ERMD, pt is aox4, on room air, with stable vital signs. pt was given dc and prescription instructions, pt was able to verbalize understanding, pt id band removed without complications. pt is able to ambulate with steady gait. pt took all belongings.
--- NOTE | 2019-07-08 11:10 | Diagnostic Imaging Report ---
Indication: pain in finger. Trauma Findings: 3 views of the left third finger were obtained. No acute fractures, malalignment, erosions, or periosteal reaction are seen. Soft tissues are unremarkable. Impression: No acute findings.
== END 2019-07-07 21:30 | disposition home or self-care (01) ==
LOC: EMR 21:30
DX: S61.213A Laceration without foreign body of left middle finger without damage to nail, initial encounter (principal); L08.9 Local infection of the skin and subcutaneous tissue, unspecified; Z91.048 Other nonmedicinal substance allergy status; Z91.018 Allergy to other foods; Z23 Encounter for immunization; X58.XXXA Exposure to other specified factors, initial encounter; Y92.9 Unspecified place or not applicable
CPT/HCPCS: 73140; 90471; 90715; Z7502; 99283

== ENCOUNTER 2019-07-18 17:09 | Emergency (ER) | payer MEDICAID ==
[~2019-07-18] VITALS: Ht 175.3 cm; Wt 123.4 kg
[~2019-07-18 17:09] MED LIST changes: +AUGMENTIN 875-1 EAC1 ORAL; +NKM
--- NOTE | 2019-07-18 17:30 | NUR ---
ED Nurse Note: late entry. PT walked into ED with a skin abrasion to back R-foot on 07/16/19, no drainage or bleeding noted from abrasion, states injury was sustained from golf cart tire wheel. VS stable, no respiratory distress noted on RA.
[2019-07-18] MEDS ORDERED: MUPIROCIN15 GM TOPIC (18:37)
[2019-07-18] MEDS ORDERED: IBUPROFEN600 MG ORAL (18:37)
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
[2019-07-18 18:54] VITALS: BP 128/85
--- NOTE | 2019-07-18 18:54 | NUR ---
ER DISCHARGE NOTE: Patient is cleared to be discharged per ERMD, pt is aox4, on room air, with stable vital signs. pt was given dc and prescription instructions, pt was able to verbalize understanding, pt id band and iv site removed without complications. pt is able to ambulate with steady gait. pt took all belongings.
--- NOTE | 2019-07-19 13:52 | Diagnostic Imaging Report ---
Indication: Pain, laceration to back of right heel Technique: 3 views right foot Comparison: none Findings: No soft tissue gas. No radiopaque foreign body. No bony destruction. No acute fractures. No dislocations. There is a small calcaneal spur. There is hammertoe deformities second through fifth digits, mild. Otherwise normal bony alignment. Joint spaces are preserved. Impression: Negative for radiopaque foreign body No acute bony trauma
== END 2019-07-18 18:54 | disposition home or self-care (01) ==
LOC: EMR 17:57
DX: S90.511A Abrasion, right ankle, initial encounter (principal); L08.9 Local infection of the skin and subcutaneous tissue, unspecified; V09.00XA Pedestrian injured in nontraffic accident involving unspecified motor vehicles, initial encounter; Y92.9 Unspecified place or not applicable
CPT/HCPCS: 73630; Z7502; 99283